=== PATIENT | male | born 1990 | race Caucasian/White ===

== ENCOUNTER 2018-10-31 14:32 | Emergency (ER) | payer SELFPAY ==
[2018-10-31 14:35] VITALS: BMI 25.5
[2018-10-31] MEDS ORDERED: ALBUTEROL SULF8.5 GM INH (14:37)
[2018-10-31 15:19] LABS: BASOPHILS 0.3 % (0-2); EOSINOPHILS 1.5 % (0-7); HEMATOCRIT 36.8 % (42.0-54.0); HEMOGLOBIN 12.8 g/dL (13.5-17.5); IMMATURE GRANULOCYTES 0.3 % (0-5); MCHC 34.8 g/dL (31.0-37.0); MCV 86.4 fL (80.0-100.0); MEAN PLATELET VOLUME 8.6 fL (7.4-10.4); MONOCYTES 7.5 % (2-11); NEUTROPHILS 67.4 % (40-80); PLATELET COUNT 312 10x3/uL (130-400); RBC 4.26 10x6/uL (4.20-6.10); RDW 12.5 % (11.5-14.5); WBC 11.7 10x3/uL (4.8-10.8)
[2018-10-31 15:29] LABS: APTT 25.2 SECONDS (22.8-39.4); INR 1.04 (0.85-1.17); PROTIME 13.1 SECONDS (11.6-15.0)
[2018-10-31 15:38] LABS: ALBUMIN 3.5 g/dL (3.4-5.0); ANION GAP 12.6 mmol/L (8-16); BILIRUBIN - TOTAL 0.32 mg/dL (0.2-1.3); CALCIUM 8.5 mg/dL (8.5-10.1); CARBON DIOXIDE 25.9 mmol/L (21.0-32.0); CREATININE - SERUM 1.5 mg/dL (0.6-1.3); POTASSIUM - SERUM 3.5 mmol/L (3.5-5.1); PROTEIN - SERUM 7.3 g/dL (6.4-8.2)
[2018-10-31 17:06] VITALS: BP 132/88
== END 2018-10-31 17:07 ==
LOC: D.ER 14:32
PROVIDERS: Family Medicine
DX: S01.01XA Laceration without foreign body of scalp, initial encounter (principal); S42.001A Fracture of unspecified part of right clavicle, initial encounter for closed fracture; V09.9XXA Pedestrian injured in unspecified transport accident, initial encounter; S00.03XA Contusion of scalp, initial encounter